=== PATIENT | female | born 1970 | race American Indian/Alaskan Native ===

== ENCOUNTER 2018-07-16 18:47 | Emergency (ER) | payer OTHER ==
[2018-07-16 19:40] LABS: Bilirubin,Urine NEG (Negative); Blood,Urine NEG (Negative); Color,Urine Yellow (Yellow); Mucus,Urine FEW /HPF; Protein,Urine <15 mg/dL mg/dL (Negative); Urobilinogen,Urine < 2.0 mg/dL (<2.0)
[2018-07-16 19:51] LABS: Hematocrit 40.1 % (30.3-42.9); Hemoglobin 13.2 gm/dl (10.1-14.3); Mean Corpuscular HGB Conc 33 % (30-34); Mean Corpuscular Volume 82 fl (79-97); Red Blood Count 4.92 M/mm3 (3.65-5.03); Red Cell Distribution Width 15.5 % (13.2-15.2)
[2018-07-16 20:03] LABS: BUN/Creatinine Ratio 14; Blood Urea Nitrogen 11 mg/dL (7-17); Calcium 8.9 mg/dL (8.4-10.2); Hemolysis Index 65; Platelet Count 291 K/mm3 (140-440)
--- NOTE | 2018-07-16 20:45 | Emergency Department Report ---
<UMA BORGES III - Last Filed: 07/16/18 23:22> ED General Adult HPI - General Chief complaint: Medical Clearance Stated complaint: KIDNEY INFECTION/HBP/HIGH BLOOD SUGAR Time Seen by Provider: 07/16/18 20:26 Source: patient Mode of arrival: Ambulatory Limitations: No Limitations - History of Present Illness Initial comments: is a 47-year-old female that presents emergency room with complaints of dysuria, abdominal pain, elevated blood pressure and elevated blood sugars. Patient states the dysuria started 10 days ago. Patient states the pain is better with rest and worse with urination. Patient is complaining lower abdominal pain radiating to her right back that started 10 days ago. Patient states the patient is an 8 out of 10. Patient states the pain is better with rest and worse with movement. Patient states she called her telemedicine network with her insurance and was prescribed Bactrim for her UTI and symptoms and the dysuria and pain has improved but is still there. Patient does not have a history of high blood pressure or diabetes -: Sudden Location: abdomen Radiation: back Severity scale (0 -10): 8 Quality: stabbing Consistency: constant Improves with: rest Worsens with: movement Associated Symptoms: denies other symptoms. denies: confusion, chest pain, coug h, diaphoresis, fever/chills, headaches, loss of appetite, malaise, nausea/vomiting, rash, seizure, shortness of breath, syncope, weakness Treatments Prior to Arrival: NSAID, other - Related Data Previous Rx's Medication Instructions Recorded Last Taken Type Ciprofloxacin HCl [Cipro] 500 mg PO BID 10 Days #20 tablet 07/16/18 Unknown Rx Allergies Allergy/AdvReac Type Severity Reaction Status Date / Time No Known Allergies Allergy Unverified 07/16/18 18:49 ED Review of Systems Constitutional: denies: chills, fever Eyes: denies: eye pain, eye discharge, vision change ENT: denies: ear pain, throat pain Respiratory: denies: cough, shortness of breath, wheezing Cardiovascular: denies: chest pain, palpitations Endocrine: no symptoms reported Gastrointestinal: abdominal pain. denies: nausea, diarrhea Genitourinary: dysuria. denies: urgency, discharge Musculoskeletal: back pain. denies: joint swelling, arthralgia Skin: denies: rash, lesions Neurological: denies: headache, weakness, paresthesias Psychiatric: denies: anxiety, depression Hematological/Lymphatic: denies: easy bleeding, easy bruising ED Past Medical Hx - Past Medical History Previous Medical History?: Yes Hx GERD: Yes Hx Psychiatric Treatment: Yes (depression,anxiety) Additional medical history: obesity - Surgical History Past Surgical History?: No - Family History Family history: no significant - Social History Smoking Status: Never Smoker Substance Use Type: Alcohol - Medications Home Medications: Home Medications Medication Instructions Recorded Confirmed Last Taken Type Ciprofloxacin HCl [Cipro] 500 mg PO BID 10 Days #20 tablet 07/16/18 Unknown Rx ED Physical Exam - General Limitations: No Limitations General appearance: alert, in no apparent distress - Head Head exam: Present: atraumatic, normocephalic - Eye Eye exam: Present: normal appearance - ENT ENT exam: Present: mucous membranes moist - Neck Neck exam: Present: normal inspection - Respiratory Respiratory exam: Present: normal lung sounds bilaterally. Absent: respiratory distress - Cardiovascular Cardiovascular Exam: Present: regular rate, normal rhythm. Absent: systolic murmur, diastolic murmur, rubs, gallop - GI/Abdominal GI/Abdominal exam: Present: soft, tenderness (lower abdominal tenderness), normal bowel sounds - Extremities Exam Extremities exam: Present: normal inspection - Back Exam Back exam: Present: normal inspection - Neurological Exam Neurological exam: Present: alert, oriented X3 - Psychiatric Psychiatric exam: Present: normal affect, normal mood - Skin Skin exam: Present: warm, dry, intact, normal color. Absent: rash ED Course - Reevaluation(s) Reevaluation #1: Initial evaluation is done. Patient's blood pressure recheck is 169/83. Based on her symptoms and presentation, I will order a CT scan of the abdomen. Discussed all results with patient. Patient agrees with plan of care and CT. 07/16/18 20:47 Discussed all results with patient. Discussed CT results with patient. Discussed blood pressure management with patient. Discussed hyperglycemia with patient. Patient is to follow-up with her primary care for further evaluation of her blood pressure and her sugars. Patient will require an ultrasound of her abdomen to further visualize the common bile duct due to not being able to visualize on CAT scan. 07/16/18 23:22 Reevaluation #2: patient signed out to ANNA Finch to follow-up on CT scan and give final disposition of patient. 07/16/18 23:27 ED Medical Decision Making - Lab Data Result diagrams: 07/16/18 19:29 07/16/18 19:29 - Radiology Data Radiology results: report reviewed - Medical Decision Making Patient is a 47-year-old female Emergency with complaints of abdominal pain radiating to her back. Patient's labs unremarkable except for a positive UA for pyuria. Patient is symptomatic with dysuria. Patient will be treated for UTI With Cipro. - Differential Diagnosis uti. abd pain. dysuria ED Disposition Clinical Impression: Elevated blood pressure reading, Hyperglycemia UTI (urinary tract infection) Qualifiers: Urinary tract infection type: acute cystitis Hematuria presence: with hematuria Qualified Code(s): N30.01 - Acute cystitis with hematuria Cholelithiasis Qualifiers: Cholelithiasis location: gallbladder Cholecystitis presence: without cholecystitis Biliary obstruction: without biliary obstruction Qualified Code(s): K80.20 - Calculus of gallbladder without cholecystitis without ob struction Back pain Qualifiers: Back pain location: low back pain Chronicity: acute Back pain laterality: right Sciatica presence: without sciatica Qualified Code(s): M54.5 - Low back pain Abdominal pain Qualifiers: Abdominal location: lower abdomen, unspecified Qualified Code(s): R10.30 - Lower abdominal pain, unspecified Disposition: DC- TO HOME OR SELFCARE Is pt being admited?: No Does the pt Need Aspirin: No Condition: Stable Instructions: Cholelithiasis (ED), Urinary Tract Infection in Women (ED), How to Take a Blood Pressure (ED), Dysuria (ED), DASH Eating Plan (ED), Low Sodium Diet (ED) Additional Instructions: Patient to follow up with primary care 2-3 days. Patient to return to ER if condition worsens. Patient to take meds as instructed. Patient to take Tylenol or ibuprofen when necessary for pain. Patient to rest. Patient to increase water. Prescriptions: Ciprofloxacin HCl [Cipro] 500 mg PO BID 10 Days #20 tablet Referrals: CESAR ARAUJO MD [Primary Care Provider] - 2-3 Days NANCY MACKENZIE DO [Staff Physician] - 2-3 Days Print Language: HEBREW <VEE JOHNSON - Last Filed: 07/17/18 01:42> ED Review of Systems ROS: Stated complaint: KIDNEY INFECTION/HBP/HIGH BLOOD SUGAR Other details as noted in HPI ED Course Vital Signs 07/16/18 07/16/18 07/16/18 18:55 20:36 20:57 Temperature 98.8 F Pulse Rate 93 H 77 Respiratory 18 20 18 Rate Blood Pressure 183/89 169/83 O2 Sat by Pulse 95 96 Oximetry - Reevaluation(s) Reevaluation #2: 07/17/18 01:39 received s/o from Dr. Borges, CT scan showed gallstones, US of the abdomen performed which showed gallstones in the gallbladder, no stones present in the duct, duct appears normal, no cholecystitis, pt VSS, will continue with Dr. Borges's tx of a UTI. ED Medical Decision Making - Lab Data Result diagrams: 07/16/18 19:29 07/16/18 19:29 - Radiology Data PROCEDURE: US ABDOMEN LIMITED TECHNIQUE: Limited abdominal ultrasound obtained. HISTORY: abd pain COMPARISONS: None FINDINGS: Limited study secondary to patient body habitus. Fatty liver noted. No hepatic lesion identified. Gallstones visualized. No evidence of gallbladder wall thickening or pericholecystic fluid. Gallbladder wall measures 1.6 mm. Common bile duct measures 4 mm. No evidence for intrahepatic or extra hepatic biliary ductal dilatation. Right kidney measures 11.1 cm. No evidence of hydronephrosis in the right kidney. IMPRESSION: Gallstones. No sonographic evidence for acute cholecystitis.. This document is electronically signed by Nayely Sanabria MD., July 17 2018 12:57:27 AM ET - Medical Decision Making received s/o from Dr. Borges. Pt had a US of the abdomen which showed gallstones in the gallbladder but no stones present in the duct, the duct appears normal per report, no cholecysitits, hepatic panel is normal, will d/c pt home with cipro for presumed UTI. Will have pt follow up with her PCP in the next 2-3 days. Will give pt referral to general surgery for cholethiasis. Discussed radiology results with pt. Advised to return to the ED if any new or worsening symptoms. Critical care attestation.: If time is entered above; I have spent that time in minutes in the direct care of this critically ill patient, excluding procedure time. ED Disposition Time of Disposition: 01:42
--- NOTE | 2018-07-16 23:13 | Cat Scan Report ---
PROCEDURE: CT ABDOMEN PELVIS WO CON TECHNIQUE: Computerized axial tomography of the abdomen and pelvis was performed without intravenous contrast. This study is performed without intravascular contrast material and its sensitivity for ab dominal and pelvic pathology, including neoplasms, inflammation, abscess, free fluid, thrombosis, art erial dissection and infarction, is reduced compared with a contrast enhanced study. HISTORY: abd pain COMPARISONS: None . FINDINGS: Lower Lung wilson: Small amount of dependent atelectasis visualized in the right base. Lung bases ot herwise appear clear. Upper Abdomen: There is a 1.4 cm low-density lesion centrally located in the right lobe of the liver image 52 series 2. This is nonspecific. The edges are slightly irregular. The liver is otherwise unr emarkable. Multiple small gas densities are seen nearly filling the gallbladder. There appear to be n umerous cholesterol gallstones present. These may extend into the common bile duct. The intrahepatic ducts are not distended. The adrenal glands, pancreas and spleen are unremarkable. Kidneys, Ureters and Urinary bladder: No abnormalities are seen. Retroperitoneum: The abdominal aorta appears normal. Nonspecific subcentimeter lymph nodes are seen in the retroperitoneum. No pathologically enlarged ly mph nodes are identified. Bowel: Bowel loops are unremarkable. No evidence of bowel obstruction, ascites or free intraperitone al gas. Normal-appearing appendix is seen in the right lower quadrant. Reproductive organs: The uterus and adnexa show no focal abnormalities. Other: No acute bone abnormalities are seen. IMPRESSION: Cholelithiasis. I cannot exclude choledocholithiasis. Recommend gallbladder ultrasound for further ev aluation. Indeterminate 1.4 cm low-density nodule located centrally in the right lobe of the liver. Consider fu rther evaluation with ultrasound. This document is electronically signed by Rohith Jean MD., July 16 2018 11:12:03 PM ET
--- NOTE | 2018-07-17 00:59 | Ultrasound Report ---
PROCEDURE: US ABDOMEN LIMITED TECHNIQUE: Limited abdominal ultrasound obtained. HISTORY: abd pain COMPARISONS: None FINDINGS: Limited study secondary to patient body habitus. Fatty liver noted. No hepatic lesion identified. Gallstones visualized. No evidence of gallbladder wall thickening or pericholecystic fluid. Gallbladd er wall measures 1.6 mm. Common bile duct measures 4 mm. No evidence for intrahepatic or extra hepatic biliary ductal dilatati on. Right kidney measures 11.1 cm. No evidence of hydronephrosis in the right kidney. IMPRESSION: Gallstones. No sonographic evidence for acute cholecystitis.. This document is electronically signed by Nayely Sanabria MD., July 17 2018 12:57:27 AM ET
[2018-07-17 01:30] LABS: Alanine Aminotransferase 12 units/L (7-56); Albumin 3.8 g/dL (3.9-5); Bilirubin,Direct < 0.2 mg/dL (0-0.2)
[2018-07-17 02:07] VITALS: BP 164/76
== END 2018-07-17 02:09 | disposition home or self-care (01) ==
LOC: ED 18:47
DX: K80.20 Calculus of gallbladder without cholecystitis without obstruction (principal); N30.01 Acute cystitis with hematuria; R03.0 Elevated blood-pressure reading, without diagnosis of hypertension; R73.9 Hyperglycemia, unspecified; K21.9 Gastro-esophageal reflux disease without esophagitis
CPT/HCPCS: 36415; 74176; 76705; 80048; 80076; 81001; 82962; 85027; 99284